=== PATIENT | female | born 1960 | race Caucasian/White ===

== ENCOUNTER 2024-04-27 22:59 | Emergency (ER) | payer SELFPAY ==
[~2024-04-27] VITALS: Ht 172.7 cm; Wt 86.3 kg
[2024-04-27 22:59] VITALS: BP 0/0; PULSE 0; RESP 0; O2SAT 86
[2024-04-27] MEDS ORDERED: EPINEPHrine HCL 1 MG/10 ML SYRG IV ONE (23:00)
--- NOTE | 2024-04-27 23:14 | ED.PDOC ---
CPR-HPI HPI Comments 64-year-old female who came to ER via EMS in cardiac arrest. Per EMS, patient was last seen normal by her , as she was complaining of chest pain before going to bed. About 10 minutes later, patient was seen unresponsive, and pulseless at bed so paramedics were called. Upon arrival, patient is still unresponsive, agonal breath, asystole. CPR initiated immediately, intubated, chest compressions done via autopulse, fluids given, patient had episodes of VFib so patient was shocked 3x, epinephrine 3x prior to arrival to the ER. Per , patient has no medical illness. Chief Complaint: CPR Time Seen by MD: 23:13 Reviewed Notes: Floor Tech Notes Allergies: Coded Allergies: NO KNOWN ALLERGIES (Unverified , 04/27/24) Information Source: Emergency Med Personnel Mode of Arrival: EMS Timing: Minutes Duration: Down time prior EMS:, Total time prior hopital: (45 minutes) Onset: Witnessed Available Hx: Unknown Inital rhythm: Asystole Treatment: CPR, Intubation, Defibrillation, IV, Epinephrine Response: Transient return of pulse Associated signs and symptoms: Chest Pain Past Medical History PAST MEDICAL HISTORY: Unobtainable Surgical History: Unobtainable BOOM BOSS History: Unobtainable Family History Family History: Unobtainable Social History Smoker: Unobtainable Alcohol: Unobtainable Drugs: Unobtainable Lives In: Home Unable to Obtain due to: Medical Urgency, Intubated Physical Exam General Appearance: Other (Patient unresponsive and CPR in progress) HEENT: Other (Pupils enlarged and unresponsive.) Neck: NOT DONE Respiratory: Other (Patient was intubated with bilateral breath sounds) Cardiovascular: Other (CPR in progress) Breast Exam: Deferred Gastrointestinal: Other (Distended abdomen) Genitalia: Deferred Pelvic: Deferred Rectal: Rectal Exam not done Extremities: Normal inspection Neurologic: Other (Unresponsive) Cerebellar Function: NOT DONE Reflexes: NOT DONE Skin: NOT DONE Lymphatic: No Adenopathy Was a procedure done? Was a procedure done?: Yes Sedation Sedation?: No Intraosseous access IO Location: Tibial plateau Prep: Alcohol IO Size: 15 ga Informed Consent: No Risks/Benefits/alt. described: No Differential Dx CPR Differential Diagnosis: Cardiopulmonary arrest, Myocardial Infarction, Respiratory Failure X-Ray, Labs, Meds, VS Vital Signs Date Time Temp Pulse Resp B/P (MAP) Pulse Ox O2 Delivery O2 Flow Rate FiO2 04/27/24 23:55 210.4 0 90 Ambu-Bag 04/27/24 23:00 Mechanical Ventilator+ 21 21 04/27/24 22:59 99.1 0 0 0/0 (0) 86 Time of 1ST Reevaluation: 23:06 Reevaluation 1ST: Unchanged Patient Education/Counseling: Pt Unresponsive Family Education/Counseling: No Family Present Departure 1 Departure Time of Disposition: 01:48 (Patient presented as a cardiac arrest with CPR in progress. ACLS per protocol. Unfortunately the patient .) Impression: Primary Impression: Cardiac arrest Disposition: 20 Admit to: More Condition: Other () Critical Care Note Critical Care Time?: No Heart Score Heart Score: Heart Score Response (Comments) Value History N/A 0 EKG N/A 0 Age N/A 0 Risk Factors N/A 0 Troponin N/A 0 Total 0 Stability Stability form required: No I personally scribed for KATARINA HENLEY MD ([email or web address]) on 04/27/24 at 23:13. Electronically submitted by Jasiel Kumar ([email or web address]). KATARINA HENLEY MD Apr 27, 2024 23:13
--- NOTE | 2024-04-27 23:55 | RESUS ---
CODE BLUE ASSESSSMENT History of Events History of Events: 64-year-old female who came to ER via EMS in cardiac arrest. Per EMS, patient was last seen normal by her , as she was complaining of chest pain before going to bed. About 10 minutes later, patient was seen unresponsive, and pulseless at bed so paramedics were called. Upon arrival, patient is still unresponsive, agonal breath, asystole. CPR initiated immediately, intubated, chest compressions done via autopulse, fluids given, patient had episodes of VFib so patient was shocked 3x, epinephrine 3x prior to arrival to the ER. Per , patient has no medical illness. Initial Information Date: Apr 27, 2024 Time: :59 Location of Arrest: In Field Arrest Witnessed: No CPR started initial time: 22:24 CPR started by whom: EMS Last seen well: about 10 m prior Pre-Hospital Care: ACLS Type of arrest: Cardiac, Respiratory, Adult, Unwitnessed Spontaneous Respirations: No Pulse Present: No Monitoring: ECG, Pulse Oximetry, Apnea, Telemetry Crash Cart Opened and Supplies: Yes Airway Ventilation Breathing at Onset: Apneic O2 Sat by Pulse Oximetry: 90 Oxygen Delivery Method: Ambu-Bag Artificial Ventilation: Bag/Endo tube Intubation Size: 7.0 cuffed Intubated by: ems Intubated orally: Yes Intubated Nasaly: No Tube secured at: 25 CO2 indicator used: Yes Confirmation: Auscultation, Exhaled CO2 Suctioning (Oral/Tracheal): No Comments: PT INTUBATED PRIOR TO ARRIVAL. Circulation Circulation : Time: :59 Pulse Rate (adult): 0 Blood Pressure Systolic: 0 Blood Pressure Diastolic: 0 Temperature (Fahrenheit): 99.1 Procedure - IV Procedure - IV : IV start time: 23:02 IV Side: Right IV Location: Antecubital IV Catheter Type: Saline Lock IV Gauge: 20 IV Line Care: Saline Flush Procedure - Intraosseous Time of intraosseous: 23:05 Size of intraosseous: 20 Site of Intraosseous: Tibia anthony-medial Intraosseous inserted by: TITO POLANCO Number of attempts for Intraos: 1 Medications & Response Medications and Responses #1: Medication Time: 23:02 ADULT Medications Given ADULT: Epinephrine 1 mg, Sodium Bacarbinate 50 meq Route of Administration: IV Heart Rate: 0 EKG Rhythm: PEA Blood Pressure Systolic: 0 Blood Pressure Diastolic: 0 Respiratory Rate: 0 O2 Sat by Pulse Oximetry: 0 IV Line Rate: 1000 EKG Rhythm: PEA Comment [id number] NO PULSE Medications and Responses #2: Medication Time: 23:05 ADULT Medications Given ADULT: Epinephrine 1 mg, Magnesium Sulfate 2 gm, Calcium Chloride 10 mL Route of Administration: IV Heart Rate: 0 EKG Rhythm: PEA Blood Pressure Systolic: 0 Blood Pressure Diastolic: 0 Respiratory Rate: 0 O2 Sat by Pulse Oximetry: 0 IV Line Rate: 1000 EKG Rhythm: PEA Comment [id number] NO PULSE Medications and Responses #3: Medication Time: 23:08 ADULT Medications Given ADULT: Epinephrine 1 mg, 2 Amps Na Bicarb Route of Administration: IV Heart Rate: 0 EKG Rhythm: PEA Blood Pressure Systolic: 0 Blood Pressure Diastolic: 0 Respiratory Rate: 0 O2 Sat by Pulse Oximetry: 0 IV Line Rate: 1000 EKG Rhythm: PEA Comment 2311 NO PULSE Medications and Responses #4: Medication Time: 23:11 ADULT Medications Given ADULT: Epinephrine 1 mg, Sodium Bacarbinate 50 meq Route of Administration: IV Heart Rate: 0 EKG Rhythm: PEA Blood Pressure Systolic: 0 Blood Pressure Diastolic: 0 Respiratory Rate: 0 O2 Sat by Pulse Oximetry: 0 EKG Rhythm: PEA Comment 2314 NO PULSE Medications and Responses #5: Medication Time: 23:14 ADULT Medications Given ADULT: Epinephrine 1 mg Route of Administration: IV Heart Rate: 0 EKG Rhythm: PEA Blood Pressure Systolic: 0 Blood Pressure Diastolic: 0 Respiratory Rate: 0 O2 Sat by Pulse Oximetry: 0 IV Line Rate: 1000 EKG Rhythm: PEA Comment 2317 NO PULSE, PT PRONOUNCED Pacing Pacer Pads Applied and Pacing: Yes Nurses Notes [place] Coma Scale Eye Opening: None (1) [employer] Coma Scale Verbal: None (1) [employer] Coma Scale Motor: None (1) Glascow Total: 3 Pupil Reaction: Non Reactive Bedside Blood Glucose: 292 EKG Rhythm: PEA Time Code Ended Time Code Ended: 23:17 Post Arrest Status: Outcome of code: Unsuccessful Patient pronounced by: DR HENLEY Time patient pronounced: 23:17 Family notified: Yes Attending called: Yes Code Team Present: DR. HENLEY, DR. FISHER, KAREN RN HS, FREDDY RN, SILKE RN, CODIE ERT, JORDAN RN, DHARMESH RT, JOCELIN RT, YULISSA RT. Post Resuscitation Neurologica Pupil Size: 3 MELISSA DE CY,KAREN Apr 27, 2024 23:55
== END 2024-04-27 23:17 ==
LOC: ER 22:59 → EDBD 22:59 → ER 23:13
DX: I46.9 Cardiac arrest, cause unspecified (principal)
CPT/HCPCS: 92950; 99285; J0171; J3475